=== PATIENT | female | born 1935 | race Caucasian/White ===

== ENCOUNTER → 2019-03-13 | Outpatient (CLI) | payer MEDICARE, BC ==
--- NOTE | 2019-03-13 19:03 | MR ---
EXAMINATION TYPE: MR lumbar spine wo con DATE OF EXAM: 03/13/2019 COMPARISON: Outside lumbar spine x-ray February 25, 2019 HISTORY: Lumbar radiculopathy per order. Low back pain with abnormal x-ray since fall injury February 23 per patient. TECHNIQUE: Multiplanar, multisequence imaging of the lumbar spine is performed without IV contrast. FINDINGS: There is redemonstration of dextroconvex scoliotic curvature centered in the mid to lower l umbar spine. Sagittal images of the lumbar spine show vertebral body heights to remain satisfactory. There is persistent grade 1 anterolisthesis of L4 on L5 measuring 4 mm along posterior margin sagitta l image 8. Multilevel disc desiccation is present. Mild to moderate multilevel disc space narrowing i s redemonstrated. Mild multilevel anterior spurring is seen. The conus medullaris is normal in posit ion and signal ending inferior L1 level. The bone marrow signal intensity is overall heterogeneous. Axial images show the T12-L1 level to have mild broad disc bulge minimally effacing anterior thecal s ac. Axial images at the L1-L2 level show subtle spondylolisthesis and mild broad disc bulge mildly effaci ng anterior thecal sac with mild facet arthropathy bilaterally. Axial images at the L2-L3 level show mild facet degenerative changes and ligament flavum hypertrophy. There is mild/moderate broad disc bulge effacing anterior thecal sac. Bilateral neural foramina are patent. Axial images at the L3-L4 level show moderate broad disc bulge effacing anterior thecal sac with mild facet degenerative changes bilaterally and mild to moderate bilateral anterior inferior neural refugio inal narrowing. Axial images at the L4-L5 level show moderate to advanced facet degenerative changes and ligament fla vum hypertrophy with spondylolisthesis and moderate broad disc bulge. Most prominent spinal canal rico nosis is seen at this level axial image 17 with moderate bilateral anterior inferior neural foraminal narrowing. Axial images at the L5-S1 level show moderate to advanced facet degenerative changes bilaterally. The re is central disc protrusion minimally effacing anterior thecal sac. Bilateral neural foramina are p atent. There is heterogeneous diminished T1 and increased T2 signal involving the sacrum bilaterally in some what "H" shape on axial image 5 for reference. There is displacement S1-S2 level roughly 11 mm senior sales consultant iorly sagittal image 7 IMPRESSION: Multilevel spondylolisthesis and degenerative changes in lumbar spine as detailed above. Suspect probable acute sacral displaced fracture related to recent fall injury. Possible insufficienc y fracture related to underlying osteoporosis. Correlate clinically. A Yellow level critical message alert has been initiated for Lit Steele MD via the [employer] Critical Results System on 03/13/2019 7:00 PM. This message alert has been sent to Lit Steele MD via the preferences provided by the clinician for the receipt of Radiology Critical Findings. Message ID [id number].
== END ==
LOC: RADMRIMAIN 08:38
PROVIDERS: ATTEND Internal Medicine
DX: M48.061 Spinal stenosis, lumbar region without neurogenic claudication (principal); M43.16 Spondylolisthesis, lumbar region; M51.15 Intervertebral disc disorders with radiculopathy, thoracolumbar region; M51.16 Intervertebral disc disorders with radiculopathy, lumbar region; M51.17 Intervertebral disc disorders with radiculopathy, lumbosacral region; M47.26 Other spondylosis with radiculopathy, lumbar region; M47.27 Other spondylosis with radiculopathy, lumbosacral region; M46.96 Unspecified inflammatory spondylopathy, lumbar region; M41.86 Other forms of scoliosis, lumbar region
CPT/HCPCS: 72148

== ENCOUNTER 2019-03-14 11:22 | Emergency (ER) | payer MEDICARE, BC ==
--- NOTE | 2019-03-14 11:49 | ED ---
Fall HPI - General Stated Complaint: fall/left hip pain Time Seen by Provider: 03/14/19 11:23 Source: patient, EMS Mode of arrival: EMS Limitations: no limitations - History of Present Illness Initial Comments: This 83-year-old female presents emergency Department, when EMS for evaluation of abnormal MRI. Patient had a fall on 02/23/2019 had x-rays and CTs of her hip next pain. Patient was admitted at that time to [facility] and states that she was transferred to [facility] for rehab. She states she had an MRI yesterday in which is found to have her fracture. MRI shows displaced fracture of the sacrum. Patient denies any bowel bladder incontinence or retention. Patient states she does have some pain areas down her legs. Patient does take pain meds. Her pain is worse when she is sitting better when she is laying. - Related Data Home Medications Medication Instructions Recorded Confirmed Gabapentin [Neurontin] 100 mg PO DAILY@0800 02/15/15 03/14/19 Metoprolol Tartrate 25 mg PO BID@0800,1700 02/15/15 03/14/19 Multivit-Min/FA/Lycopene/Lut 1 tab PO DAILY@169902/15/15 03/14/19 [Centrum Silver Tablet] Omeprazole [PriLOSEC] 20 mg PO BID@0800,169902/15/15 03/14/19 Vitamin E (Dl,Tocopheryl Acet) 400 unit PO DAILY@169902/15/15 03/14/19 [Vitamin E] ALPRAZolam [Xanax] 0.25 mg PO DAILY PRN 03/14/19 03/14/19 Bisacodyl [Dulcolax] 10 mg RECTAL DAILY PRN 03/14/19 03/14/19 Calcium Carb-Vit D 500Mg-200Un 1 tab PO DAILY@169903/14/19 03/14/19 [Oscal 500+D] Docusate [Colace] 100 mg PO BID@0800,2100 03/14/19 03/14/19 Enoxaparin [Lovenox] 40 mg SQ DAILY@0800 03/14/19 03/14/19 Ferrous Sulfate [Feosol] 325 mg PO BID@0800,1700 03/14/19 03/14/19 Glucerna Shake 1 can PO DAILY@0800 04/30/19 04/30/19 HYDROcodone/APAP 7.5-325MG [[place] 1 tab PO Q6H PRN 03/14/19 03/14/19 7.5-325] Magnesium Hydroxide [Milk of 2,400 mg PO DAILY PRN 03/14/19 03/14/19 Magnesia] Na Phos,M-B/Na Phos,Di-Ba [Fleet 133 ml RECTAL DAILY PRN 03/14/19 03/14/19 Adult] Pravastatin Sodium [Pravachol] 20 mg PO HS@2100 03/14/19 03/14/19 Sertraline [Zoloft] 25 mg PO DAILY@0800 03/14/19 03/14/19 Tamsulosin [Flomax] 0.4 mg PO DAILY@79903/14/19 03/14/19 Allergies Allergy/AdvReac Type Severity Reaction Status Date / Time calamine Allergy Unknown BURNING Verified 03/14/19 11:36 Review of Systems ROS Statement: Those systems with pertinent positive or pertinent negative responses have been documented in the HPI. ROS Other: All systems not noted in ROS Statement are negative. Past Medical History Past Medical History: Diabetes Mellitus, GERD/Reflux, Hyperlipidemia, Hypertension, Osteoarthritis (OA) Additional Past Medical History / Comment(s): NEUROPATHY FEET, DIABETES(NO MEDS), VERTIGO-STATES SHE SLEEPS IN RECLINER. HX OF PRE-CANCER OF BREAST, HX OF IRREGULAR HEART BEAT WITH ABLATION?, RECENT CONSTIPATION AND NAUSEA . History of Any Multi-Drug Resistant Organisms: None Reported Past Surgical History: Breast Surgery, Heart Catheterization Additional Past Surgical History / Comment(s): BREAST BXS, RT MASTECTOMY, CATARACTS. ? CARDIAC ABLATION. Past Anesthesia/Blood Transfusion Reactions: No Reported Reaction Additional Past Anesthesia/Blood Transfusion Reaction / Comment(s): HAS VERTIGO WHEN LYING FLAT STATES THE ROOM SPINS Past Psychological History: Anxiety Smoking Status: Never smoker Past Alcohol Use History: None Reported Past Drug Use History: None Reported - Past Family History Brother(s) Family Medical History: Cancer General Exam General appearance: alert, in no apparent distress Head exam: Present: atraumatic, normocephalic, normal inspection Respiratory exam: Present: normal lung sounds bilaterally. Absent: respiratory distress, wheezes, rales, rhonchi, stridor Cardiovascular Exam: Present: regular rate, normal rhythm, normal heart sounds. Absent: systolic murmur, diastolic murmur, rubs, gallop, clicks GI/Abdominal exam: Present: soft, normal bowel sounds. Absent: distended, tenderness, guarding, rebound, rigid Extremities exam: Present: normal inspection, full ROM, normal capillary refill. Absent: tenderness, pedal edema, joint swelling, calf tenderness Back exam: Present: tenderness, vertebral tenderness (Sacral). Absent: full ROM Neurological exam: Present: alert, oriented X3, CN II-XII intact Skin exam: Present: warm, dry, intact, normal color. Absent: rash Course Vital Signs 03/14/19 03/14/19 11:33 13:30 Temperature 99.5 F Pulse Rate 71 74 Respiratory 18 16 Rate Blood Pressure 119/57 127/74 O2 Sat by Pulse 99 99 Oximetry Medical Decision Making - Medical Decision Making 83-year-old female presented for abnormal MRI which shows sacral fracture. I did review MRI with orthopedics Padmini Ruff and Dr. Osorio in which the patient is not a surgical candidate at this time. She does have some spondylolisthesis. They recommend nonweightbearing, wheelchair transfer. Patient will be discharged she has no red flag symptoms. Return parameters were discussed. Disposition Clinical Impression: Sacral fracture, Spondylolisthesis, lumbar region Disposition: DC/TRNS INTERMEDIATE CARE FAC Condition: Stable Instructions (If sedation given, give patient instructions): Sacral Fracture (ED) Additional Instructions: Please return to the Emergency Department if symptoms worsen or any other concerns. Is patient prescribed a controlled substance at d/c from ED?: No Referrals: Lit Steele MD [STAFF PHYSICIAN] - 1-2 days Time of Disposition: 14:17 - Out of Hospital Transfer - Req. Specs Out of Hospital Transfer - Requested Specifics: Other Non-Acute ([place])
[2019-03-14 12:01] VITALS: TEMP 99.5
[2019-03-14 13:31] VITALS: RESP 16
[2019-03-14] MEDS ORDERED: HYDROcodone/APAP 10-325MG 1 EACH TAB PO ONE (14:15)
[2019-03-14] MEDS ORDERED: BISACODYL 10 MG SUPP RECTAL PRN (14:34)
[2019-03-14] MEDS ORDERED: HYDROcodone/APAP 7.5-325MG 1 EACH TAB PO PRN (14:34)
[2019-03-14] MEDS ORDERED: NA PHOS,M-B/NA PHOS,DI-BA 133 ML ENEMA RECTAL PRN (14:34)
[2019-03-14] MEDS ORDERED: ALPRAZolam 0.25 MG TAB PO PRN (14:34)
[2019-03-14] MEDS ORDERED: MAGNESIUM HYDROXIDE 2,400 MG/10 ML CUP PO PRN (14:34)
--- NOTE | 2019-03-14 14:34 | P.HPIM ---
History of Present Illness H&P Date: 03/14/19 Chief Complaint: Abnormal MRI of the sacrum This is a 83-year-old female, patient of Dr. Baxter. She has a known past medical history of hypertension, paroxysmal atrial fibrillation status post ablation, hyperlipidemia, GERD, osteo-arthritis, borderline diabetic and depression. Patient was recently hospitalized at [facility] on February 23 after a fall with left hip pain and contusion. At that time a computed tomography scan of the hip was completed it was negative for any fracture she had x-rays of the cervical spine x-rays of the lumbar spine which were also negative. Patient had gone to [facility] for rehab. She continued to have significant pain with trying to sit or with moving into a sitting position. She was unable to walk and participate with physical therapy. Further workup was done with a computed tomography scan and then it MRI of the lumbar spine. Results showed a multilevel spondylolisthesis and degenerative changes in the lumbar spine. Suspect probable acute sacral displaced fracture related to recent fall injury. Possible insufficiency fracture related to underlying osteoporosis. Patient has been admitted to the hospital for further workup and evaluation. Consult is been placed for Dr. Bhakta. Patient does report the Nor co does control her pain. She denies any fever, chills, sweats, chest pain or shortness breath, nausea or vomiting, bowel movement changes or urinary symptoms. She denies any loss of bowel or bladder control. Denies any numbness, tingling or weakness of the lower extremities. Review of Systems Please refer to HPI otherwise unremarkable Past Medical History Past Medical History: Diabetes Mellitus, GERD/Reflux, Hyperlipidemia, Hypertension, Osteoarthritis (OA) Additional Past Medical History / Comment(s): NEUROPATHY FEET, DIABETES(NO MEDS), VERTIGO-STATES SHE SLEEPS IN RECLINER. HX OF PRE-CANCER OF BREAST, HX OF IRREGULAR HEART BEAT WITH ABLATION?, RECENT CONSTIPATION AND NAUSEA . History of Any Multi-Drug Resistant Organisms: None Reported Past Surgical History: Breast Surgery, Heart Catheterization Additional Past Surgical History / Comment(s): BREAST BXS, RT MASTECTOMY, CATARACTS. ? CARDIAC ABLATION. Past Anesthesia/Blood Transfusion Reactions: No Reported Reaction Additional Past Anesthesia/Blood Transfusion Reaction / Comment(s): HAS VERTIGO WHEN LYING FLAT STATES THE ROOM SPINS Past Psychological History: Anxiety Smoking Status: Never smoker Past Alcohol Use History: None Reported Past Drug Use History: None Reported - Past Family History Brother(s) Family Medical History: Cancer Medications and Allergies Home Medications Medication Instructions Recorded Confirmed Type Gabapentin [Neurontin] 100 mg PO DAILY@0800 02/15/15 03/14/19 History Metoprolol Tartrate 25 mg PO BID@0800,1700 02/15/15 03/14/19 History Multivit-Min/FA/Lycopene/Lut 1 tab PO DAILY@17002/15/15 03/14/19 History [Centrum Silver Tablet] Omeprazole [PriLOSEC] 20 mg PO BID@0800,1700 02/15/15 03/14/19 History Vitamin E (Dl,Tocopheryl Acet) 400 unit PO DAILY@169902/15/15 03/14/19 History [Vitamin E] ALPRAZolam [Xanax] 0.25 mg PO DAILY PRN 03/14/19 03/14/19 History Bisacodyl [Dulcolax] 10 mg RECTAL DAILY PRN 03/14/19 03/14/19 History Calcium Carb-Vit D 500Mg-200Un 1 tab PO DAILY@169903/14/19 03/14/19 History [Oscal 500+D] Docusate [Colace] 100 mg PO BID@0800,2100 03/14/19 03/14/19 History Enoxaparin [Lovenox] 40 mg SQ DAILY@0800 03/14/19 03/14/19 History Ferrous Sulfate [Feosol] 325 mg PO BID@0800,1700 03/14/19 03/14/19 History Glucerna Shake 1 can PO DAILY@0800 03/14/19 03/14/19 History HYDROcodone/APAP 7.5-325MG [[place] 1 tab PO Q6H PRN 03/14/19 03/14/19 History 7.5-325] Magnesium Hydroxide [Milk of 2,400 mg PO DAILY PRN 03/14/19 03/14/19 History Magnesia] Na Phos,M-B/Na Phos,Di-Ba [Fleet 133 ml RECTAL DAILY PRN 03/14/19 03/14/19 History Adult] Pravastatin Sodium [Pravachol] 20 mg PO HS@209903/14/19 03/14/19 History Sertraline [Zoloft] 25 mg PO DAILY@0800 03/14/19 03/14/19 History Tamsulosin [Flomax] 0.4 mg PO DAILY@0800 03/14/19 03/14/19 History Allergies Allergy/AdvReac Type Severity Reaction Status Date / Time calamine Allergy Unknown BURNING Verified 03/14/19 11:36 Physical Exam Vitals: Vital Signs Temp Pulse Resp BP Pulse Ox 03/14/19 13:30 74 16 127/74 99 03/14/19 11:33 99.5 F 71 18 119/57 99 Intake and Output 03/13/19 03/14/19 03/14/19 22:59 06:59 14:59 Other: Weight 64.41 kg Head normocephalic Neck supple Lungs clear to auscultation bilaterally no wheezing or crackles Heart regular rate and rhythm S1-S2, no rub or gallop Abdomen is soft nontender nondistended positive bowel sounds no hepatosplenomegaly Extremities no edema. Patient is able to push feet down his gas pedals with good strength. Bilaterally. She is able to lift legs off the table without any pain. Neuro alert and orientated to 3 Assessment and Plan Assessment: 1. Lower back pain with sitting and unable to ambulate with fall on 02/23/2019: MRI of the lumbar spine showing a suspected probable acute sacral displaced fracture related to recent fall injury. Possible insufficiency fracture related to underlying osteoporosis. Consult Dr. Bhakta. Continue Leona for pain control 2. History of paroxysmal atrial fibrillation status post ablation. Per patient this was several years ago and has not been on any anticoagulation 3. Essential hypertension 4. Hyperlipidemia 5. History of breast cancer status post right mastectomy in 2011 6. Iron deficiency anemia 7. Osteoarthritis 8. Borderline diabetic hemoglobin A1c at [facility] was 6.6. Continue diabetic diet 9. Depression continue Zoloft 10. Generalized anxiety disorder. Continue Xanax as needed 11. Episode of urinary retention at [facility] resolved. Patient evaluated by urology at that time and was discharged on Flomax GI prophylaxis Pepcid and DVT prophylaxis Lovenox Time with Patient: Greater than 30 (Greater than 50% of the total time spent in counseling and coordination of care.I performed an examination of the patient and discussed their management with the physician Heavy Equipment Operator/Paver. I have reviewed the Physician Heavy Equipment Operator/Paver's notes and agree with the documented findings and plan of care)
[2019-03-14 14:46] VITALS: BP 128/57; PULSE 62
[2019-03-14] MEDS ORDERED: LUT PO SCH (17:00)
[2019-03-14] MEDS ORDERED: [UNRECOGNIZED DRUG - OTHER] PO SCH (17:00)
[2019-03-14] MEDS ORDERED: CALCIUM CARB-VIT D 500MG-200UN 1 EACH TAB PO SCH (17:00)
[2019-03-14] MEDS ORDERED: MULTIVIT MIN PO SCH (17:00)
[2019-03-14] MEDS ORDERED: LYCOPENE PO SCH (17:00)
[2019-03-14] MEDS ORDERED: VITAMIN E (DL,TOCOPHERYL ACET) 400 UNIT CAP PO SCH (17:00)
[2019-03-14] MEDS ORDERED: METOPROLOL TARTRATE 25 MG TAB PO SCH (17:00)
[2019-03-14] MEDS ORDERED: NON-FORMULARY DRUG (Omeprazole [Prilosec] 20 MG) PO SCH (17:00)
[2019-03-14] MEDS ORDERED: FERROUS SULFATE 325 MG TAB PO SCH (17:00)
[2019-03-14] MEDS ORDERED: INSULIN ASPART (NovoLOG) 100 UNIT/ML VIAL SQ SCH (17:30)
[2019-03-14] MEDS ORDERED: DOCUSATE 100 MG CAP PO SCH (21:00)
[2019-03-14] MEDS ORDERED: PRAVASTATIN SODIUM 20 MG TAB PO SCH (21:00)
[2019-03-15] MEDS ORDERED: NON-FORMULARY DRUG (Glucerna Shake 1 CAN) PO SCH (08:00)
[2019-03-15] MEDS ORDERED: GABAPENTIN 100 MG CAP PO SCH (08:00)
[2019-03-15] MEDS ORDERED: TAMSULOSIN 0.4 MG CAP.ER.24H PO SCH (08:00)
[2019-03-15] MEDS ORDERED: ENOXAPARIN 40 MG/0.4 ML SYRINGE SQ SCH (08:00)
[2019-03-15] MEDS ORDERED: SERTRALINE 25 MG TAB PO SCH (08:00)
== END 2019-03-14 16:41 ==
LOC: EC 11:22
DX: S32.10XA Unspecified fracture of sacrum, initial encounter for closed fracture (principal); M43.16 Spondylolisthesis, lumbar region; K21.9 Gastro-esophageal reflux disease without esophagitis; E78.5 Hyperlipidemia, unspecified; I10 Essential (primary) hypertension; G62.9 Polyneuropathy, unspecified; M19.90 Unspecified osteoarthritis, unspecified site; F41.9 Anxiety disorder, unspecified; Z79.01 Long term (current) use of anticoagulants; Z79.899 Other long term (current) drug therapy; Z88.8 Allergy status to other drugs, medicaments and biological substances; Z85.3 Personal history of malignant neoplasm of breast; W19.XXXA Unspecified fall, initial encounter; Y92.009 Unspecified place in unspecified non-institutional (private) residence as the place of occurrence of the external cause
CPT/HCPCS: 99284

== ENCOUNTER → 2019-07-21 | Outpatient (CLI) | payer MEDICARE, BC ==
[2019-07-21 11:07] LABS: Anisocytosis Slight; HCT 39.3 % (34.0-46.0); HGB 12.6 gm/dL (11.4-16.0); MCH 31.2 pg (25.0-35.0); MCHC 32.2 g/dL (31.0-37.0); MCV 97.1 fL (80.0-100.0); Mean Platelet Volume 7.1; Platelet Count 240 k/uL (150-450); RBC 4.05 m/uL (3.80-5.40); RDW 16.1 % (11.5-15.5); WBC 7.5 k/uL (3.8-10.6)
[2019-07-21 11:13] LABS: Appearance,Urine Clear (Clear); Bilirubin,Urine Negative (Negative); Blood,Urine Negative (Negative); Color,Urine Yellow; Glucose,Urine (UA) Negative (Negative); Ketones,Urine Negative (Negative); Leukocyte Esterase,Urine Negative (Negative); Nitrite,Urine Negative (Negative); Protein,Urine Negative (Negative); Specific Gravity,Urine 1.011 (1.001-1.035); Urobilinogen,Urine <2.0 mg/dL (<2.0)
[2019-07-21 11:14] LABS: INR 0.9 (<1.2); Partial Thromboplastin Time 25.6 sec (22.0-30.0)
[2019-07-21 11:26] LABS: ALT 18 U/L (9-52); AST 23 U/L (14-36); African American GFR (CKD) >90 (>60 ml/min/1.73 sqM); Albumin 4.2 g/dL (3.5-5.0); Alkaline Phosphatase 98 U/L (38-126); Anion Gap 7 mmol/L; Blood Urea Nitrogen 20 mg/dL (7-17); Calcium 9.7 mg/dL (8.4-10.2); Carbon Dioxide 30 mmol/L (22-30); Chloride 102 mmol/L (98-107); Glucose 89 mg/dL (74-99); Sodium 139 mmol/L (137-145); Total Bilirubin 0.3 mg/dL (0.2-1.3); Total Protein 7.2 g/dL (6.3-8.2)
== END | disposition home or self-care (01) ==
LOC: LABPAT 10:34
PROVIDERS: ATTEND Orthopaedic Surgery
DX: Z01.812 Encounter for preprocedural laboratory examination (principal); M17.11 Unilateral primary osteoarthritis, right knee; Z79.01 Long term (current) use of anticoagulants
CPT/HCPCS: 36415; 80053; 81003; 85027; 85610; 85730; 87070

== ENCOUNTER 2019-08-07 13:30 | Inpatient (IN) | payer MEDICARE, BC ==
[2019-08-01 15:34] VITALS: BMI 23.6
[~2019-08-07 13:30] MED LIST: ACETAMINOPHEN TAB 500 MG TAB PO ONE; LIDOCAINE 1% 20 ML VIAL (10MG/ML) FOR IV START INTRADERMA PRN; MIDAZOLAM 2 MG/2 ML VIAL IV PRN; ONDANSETRON 4 MG/2 ML VIAL IVP ONE; ROPIVACAINE 246.25 MG, EPINEPHrine 0.5 MG, KETOROLAC 30 MG, cloNIDine HCL/PF 80 MCG, WA... MISCELLANE ONE; TRANEXAMIC ACID 1,000 MG in SODIUM CHLORIDE 0.9% 100 ML IVPB ONE; fentaNYL (PF) 50 MCG/ML 2 ML AMP IV PRN
[2019-08-07] MEDS ORDERED: MELOXICAM 7.5 MG TAB PO ONE (13:56)
[2019-08-07] MEDS: LACTATED RINGERS 1,000 ML IV SCH ×3 (14:05→21:20)
[2019-08-07] MEDS ORDERED: ROPIVACAINE 0.2%-NS ON-Q PUMP 1,090 MG, EMPTY PAIN BALL 1 EACH MISCELLANE PRN (15:02)
[2019-08-07] MEDS ORDERED: ROPIVACAINE 246.25 MG, EPINEPHrine 0.5 MG, KETOROLAC 30 MG, cloNIDine HCL/PF 80 MCG, WA... MISCELLANE ONE ×5 (15:13)
[2019-08-07] MEDS ORDERED: fentaNYL (PF) 50 MCG/ML 2 ML AMP ONE (15:25)
[2019-08-07] MEDS ORDERED: ePHEDrine SULFATE/0.9% NACL/PF 50 MG/5 ML SYRINGE IV ONE (15:25)
[2019-08-07] MEDS ORDERED: PROPOFOL 10 MG/ML 20 ML VIAL IV ONE (15:25)
[2019-08-07] MEDS ORDERED: TRANEXAMIC ACID 1,000 MG/10 ML VIAL ONE (15:25)
[2019-08-07] MEDS ORDERED: SODIUM CHLORIDE 0.9% 100 ML BAG ONE (15:25)
[2019-08-07] MEDS ORDERED: MIDAZOLAM 2 MG/2 ML VIAL ONE (15:25)
[2019-08-07] MEDS ORDERED: ceFAZolin 3,000 MG in SODIUM CHLORIDE 0.9% IRRIGATIO 3,000 ML IRRIGATION ONE (15:43)
--- NOTE | 2019-08-07 16:30 | P.ANPRN ---
Procedure Note - Anesthesia - Nerve Block Performed Right Adductor Canal Infusion Time Out Performed: Yes Date of Procedure: 08/07/19 Procedure Start Time: 14:29 Location of Patient Procedure: PreOp Indication: Acute Post-Operative Pain, Requested by Surgeon Specifically requested for management of pain by DrJohnson: [place] Red Sedation Type: Sedate with meaningful contact maintained Preparation: Sterile Prep Position: Supine Catheter: Indwelling Needle Types: Pajunk Needle Gauge: 18 Ultrasound used to visualize needle placement: Yes Ultrasound used to observe medication spread: Yes Injectate: 0.5% Ropivacaine (see comment for volume) Blood Aspirated: No Pain Paresthesia on Injection Noted: No Resistance on Injection: Normal Image Stored and Saved: Yes Events: Uneventful and Well Tolerated
[2019-08-07] MEDS ORDERED: LACTATED RINGERS 1,000 ML IV ONE (16:55)
--- NOTE | 2019-08-07 17:19 | P.OP ---
Date of Procedure: 08/07/19 Procedure(s) Performed: PREOPERATIVE DIAGNOSIS: Right knee severe osteoarthritis with genu varum POSTOPERATIVE DIAGNOSIS: Right knee severe osteoarthritis with genu varum OPERATION: Right knee cemented total replacement arthroplasty, Oxinium on polyethylene. ANESTHESIA: Spinal ESTIMATED BLOOD LOSS: 50 ml. TRAILER TANK TRUCK DRIVER: Gricel Shah PA-C (assistance with: patient positioning, retraction, exposure, hemostasis, leg positioning, implantation, irrigation, closure, dressing) COMPLICATIONS: None apparent. COMPONENTS IMPLANTED: Journey II BCS total knee system from [employer], [employer] INDICATIONS: Ms. Weber is an 83 year old female with a history of right knee osteoarthritis and severe genu varum. The patient's knee is end-stage, and conservative management has failed. The operation of knee replacement has been discussed at length in the office, as well as potential risks and complications. These are inclusive of, but not limited to: bleeding, infection, scarring, discomfort, blood vessel and nerve damage, need for further surgery, failure to relieve symptoms, persistence, recurrence, or worsening of problems, loosening, dislocation, wear, blood clot, pulmonary embolism, , gait dysfunction, stiffness, and other risks as discussed in the office. The patient elects to proceed and the consent form has been signed. PROCEDURE: The patient was taken to the operating room and positioned on the operating room table in the supine position. Anesthesia was initiated. Care was taken to make sure that all pressure points were adequately padded. The right operative lower extremity was prepped and draped in the usual aseptic fashion using ChloraPrep. Ioban drape was used for the case and the patient received intravenous antibiotics within one hour of the incision. A pneumotourniquet and leg mendoza were used for the case. The limb was exsanguinated with an Esmarch bandage and the tourniquet was inflated to 350 mmHg. Time-out was called confirming the patient's identity, side, procedure and administration of antibiotics and tranexamic acid. The incision was then created midline directly over the left knee, carried down through skin and into the subcutaneous tissues and down to fascia. Full thickness subcutaneous medial flap was developed. Medial parapatellar arthrotomy was performed and the interior of the knee was inspected. There was end-stage osteoarthritis of the knee with a severe genu varum type deformity. According to preop templating via the [employer] system, this patient had a varus deformity measuring 18.3 degrees. The fat pad was excised and proximal medial release on the tibia was completed using meticulous dissection and a curv ed osteotome. The anterior cruciate ligament was taken down. Note was made of significant attrition of the anterior and significant degenerative appearance of the cruciate ligaments. The exposure was excellent. The knee was flexed 90 degrees and the patella was everted. The [employer] pre- made distal cutting block was attached and pinned into position. The planned cut was analyzed visually and found to be satisfactory without the need for any adjustment. The oscillating saw was then used to make the distal femoral cut. This cut was confirmed to be flat with the flat end of an osteotome. The retractors were placed around the tibia and the tibial surface was addressed. The [employer] pre-made guide was placed onto the exposed tibial surface and pinned into position to shayy the rotational alignment. The alignment of the guide was checked for depth of plannned resection, slope, and varus valgus. Guide was confirmed to be in good position and the tibial cut was then created with protection of the posterior neurovascular structures and the collateral ligaments. The tibial cut surface was removed and sized. Femoral sizing was then accomplished using posterior referencing. Care was taken to analyze the posterior condyles for signs of deficiency or severe wear, and adjustments to the guide were made, as appropriate. 3 degree external rotation pins were placed relative to [place]'s line. The cutting jig for the femur was applied to these pins. The planned cuts were further analyzed prior to performing them with the oscillating saw. No femoral notching was produced. B one fragments were removed and the cut surfaces were finished, as necessary, with a reciprocating saw. Spacer block technique was then used to confirm that the flexion and extension gaps were equal. Soft tissue releases and adjustment of the tibial and/or femoral cuts were made, as necessary, until the gaps were equal. This included release of the posterior cruciate ligament, which was excessively tight in this patient. The femur was then further finished for a posterior cruciate ligament substituting component. Patellar resurfacing was performed using a reamer. The size of the required patellar component was estimated and the patellar surface was then reamed down to a residual thickness which would recreate the otoe-[place] thickness with the component. The exact placement of the patellar component was adjusted for position based on preoperative x-rays and intraoperative findings. Prior to placing trial components, anesthetic solution consisting of ropivicaine with epinephrine, ketorolac, and clonidine was injected carefully and methodically in a grid pattern using aspiration technique into the soft tissue around the knee circumferentially, starting with the deeper tissues first and progressing to fascia, and then finally the skin/subcutaneous tissue. Particular care was taken when injecting the posterior capsule. The trial components were inserted. The tibial tray was allowed to self center and the patella was noted to track very well. The position of the tibial component was marked and noted to be nearly exactly aligned with the pre-drilled holes from the [employer] guide. The tibia was then finished for a stemmed tibial component. Cement was mixed on the back table and applied to the final components. Trial components were removed and the cut surfaces of the bone were pulse lavaged thoroughly and dried. Medial extensive spurring was removed during this step according to the placement of the trial. Cement was then applied to the tibial surface and pressurized into the surface using finger pressurization technique. The tibial component was then applied and excess cement was removed after it was impacted securely and noted to be flush with the cut surface. In similar fashion, the cement was applied to the cut femoral surface, pressurized in using finger pressurization and the component was impacted into place. Excess cement was removed. The polyethylene spacer was then implanted and locked into position. The patellar component was then applied in similar technique and a patellar clamp was used to hold the patella in place as the cement hardened. Once the cement had fully hardened, the knee was reinspected. Any other cement extrusion was removed and final kinematic testing showed range of motion from 0 to 130 degrees with excellent stability, both medially and laterally and appropriate alignment of the leg. Patellar tracking was excellent. The knee was then thoroughly pulse lavaged with normal saline. The tourniquet was deflated and hemostasis was obtained with electrocautery and IV tranexamic acid, 1 g given at the start of the operation and 1 g at the start of closure. Closure was with #2 Ethibond in the fascia/capsule and supplemented with #2 Quill, 2-0 Vicryl suture was used for the subcutaneous tissues and 3-0 Quill for the skin. Dermabond/Steri-Strips were then applied. A lightly compressive dressing was applied using Webril and an Gurvinder wrap. The patient was then transferred to [facility] and taken to the recovery room in stable condition. Sponge and needle counts were correct.
[2019-08-07] MEDS ORDERED: TEMAZEPAM 15 MG CAP PO PRN (17:55)
[2019-08-07] MEDS ORDERED: NALOXONE 0.4 MG/ML 1 ML VIAL IV PRN (17:55)
[2019-08-07] MEDS ORDERED: HYDROcodone/APAP 5-325MG 1 EACH TAB PO PRN (17:55)
[2019-08-07] MEDS ORDERED: NA PHOS,M-B/NA PHOS,DI-BA 133 ML ENEMA RECTAL PRN (17:55)
[2019-08-07] MEDS ORDERED: HYDROmorphone 0.5 MG/0.5 ML SYRINGE IVP PRN ×3 (17:55)
[2019-08-07] MEDS ORDERED: ONDANSETRON 4 MG/2 ML VIAL IVP PRN (17:55)
[2019-08-07] MEDS ORDERED: MAGNESIUM HYDROXIDE 2,400 MG/10 ML CUP PO PRN (17:55)
[2019-08-07] MEDS ORDERED: BISACODYL 10 MG SUPP RECTAL PRN (17:55)
--- NOTE | 2019-08-07 18:38 | XR ---
EXAMINATION TYPE: XR knee limited RT DATE OF EXAM: 08/07/2019 COMPARISON: NONE HISTORY: Postop. Pain. TECHNIQUE: 2 views FINDINGS: There is right knee prosthesis. Components are in anatomic position. IMPRESSION: No complicating process seen.
[2019-08-07] MEDS: ASPIRIN 325 MG TAB PO SCH (21:36)
[2019-08-07] MEDS: SENNOSIDES-DOCUSATE SODIUM 1 EACH TAB PO SCH (21:37)
[2019-08-08] MEDS: LACTATED RINGERS 1,000 ML IV SCH ×2 (04:07→07:11)
--- NOTE | 2019-08-08 07:12 | P.PN ---
Progress Note - Text 08/08 654am 83-year-old female status post total knee replacement by Dr. Red. Patient has an On-Q pump for postop pain control with the solution running at 8 mL an hour with a VAS of 1. plan to continue On-Q pump infusion f
[2019-08-08 07:37] LABS: Basophils % (A) 0 %; Eosinophils # (A) 0.1 k/uL (0-0.7); Eosinophils % (A) 1 %; HCT 34.9 % (34.0-46.0); HGB 11.4 gm/dL (11.4-16.0); Lymphocytes # (A) 1.2 k/uL (1.0-4.8); Lymphocytes % (A) 15 %; MCH 31.2 pg (25.0-35.0); MCHC 32.5 g/dL (31.0-37.0); Monocytes # (A) 0.6 k/uL (0-1.0); Monocytes % (A) 7 %; Neutrophils # (A) 5.7 k/uL (1.3-7.7); Neutrophils % (A) 74 %; Platelet Count 207 k/uL (150-450); RBC 3.64 m/uL (3.80-5.40); RDW 15.7 % (11.5-15.5); WBC 7.7 k/uL (3.8-10.6)
[2019-08-08] MEDS: MELOXICAM 7.5 MG TAB PO SCH (07:54)
[2019-08-08] MEDS: HYDROcodone/APAP 5-325MG 1 EACH TAB PO PRN ×2 (07:54→17:27)
[2019-08-08] MEDS: ASPIRIN 325 MG TAB PO SCH ×2 (07:54→20:41)
[2019-08-08 08:51] VITALS: RESP 16
--- NOTE | 2019-08-08 09:53 | P.PN ---
Subjective Progress Note Date: 08/08/19 Principal diagnosis: Degenerative arthritis right knee. Status post total right knee arthroplasty. This is a pleasant 83-year-old female who is status post total right knee arthroplasty. She is doing well from an orthopedic standpoint. She has been up with therapy this morning. She has no new complaints or concerns today. Vital signs and labs are stable. Objective - Vital Signs Vital signs: Vital Signs Temp 98.2 F 08/08/19 07:40 Pulse 67 08/08/19 07:40 Resp 16 08/08/19 07:40 BP 126/67 08/08/19 07:40 Pulse Ox 93 L 08/08/19 07:40 Intake & Output 08/07/19 08/08/19 08/08/19 18:59 06:59 18:59 Intake Total 1251 250 Output Total 50 Balance 1201 250 Intake: IV 1251 250 Output: Estimated Blood Loss 50 Other: Voiding Method Toilet Toilet # Voids 1 1 - Exam This is a pleasant 83-year-old female in no acute distress. She is alert and oriented 3. Exam of the right knee reveals that her dressing is clean, dry and intact. She has full foot and ankle motion without difficulty or pain. Pain with palpation. Neurovascular status to the lower extremity is intact. - Labs CBC & Chem 7: 08/08/19 07:19 Labs: Abnormal Lab Results - Last 24 Hours (Table) 08/08/19 Range/Units 07:19 RBC 3.64 L (3.80-5.40) m/uL RDW 15.7 H (11.5-15.5) % Assessment and Plan (1) Varus deformity, not elsewhere classified, right knee Current Visit: Yes Status: Acute Code(s): M21.161 - VARUS DEFORMITY, NOT ELSEWHERE CLASSIFIED, RIGHT KNEE SNOMED Code(s): 004453891 (2) Osteoarthritis of right knee Current Visit: Yes Status: Acute Code(s): M17.11 - UNILATERAL PRIMARY OSTEOARTHRITIS, RIGHT KNEE SNOMED Code(s): 028798457594155 (3) Status post total right knee replacement Current Visit: Yes Status: Acute Code(s): Z96.651 - PRESENCE OF RIGHT ARTIFICIAL KNEE JOINT SNOMED Code(s): 1688894843860 Plan: The clinical findings are discussed with the patient. We will plan discharged to home tomorrow with home care. We will have physical therapy work with her some more today. Continue routine orthopedic care.
[2019-08-08 11:23] LABS: ALT 14 U/L (9-52); AST 22 U/L (14-36); African American GFR (CKD) >90 (>60 ml/min/1.73 sqM); Albumin 3.4 g/dL (3.5-5.0); Alkaline Phosphatase 81 U/L (38-126); Anion Gap 8 mmol/L; Blood Urea Nitrogen 15 mg/dL (7-17); Carbon Dioxide 27 mmol/L (22-30); Chloride 103 mmol/L (98-107); Glucose 139 mg/dL (74-99); Potassium 4.4 mmol/L (3.5-5.1); Sodium 138 mmol/L (137-145); Total Bilirubin 0.3 mg/dL (0.2-1.3)
--- NOTE | 2019-08-08 11:36 | P.CONS ---
History of Present Illness - Reason for Consult Consult date: 08/08/19 Medical management Requesting physician: Denton Red - Chief Complaint Severe osteoarthritis of right knee - History of Present Illness This is an 83-year-old female patient of Dr. Baxter. She presented 08/07/2019 for an elective right knee cemented total replacement arthroplasty with Dr. Red. She has an On-Q pump in place. She denies any pain at this time, pain regimen managed by Ortho. Patient is alert and sitting up in chair, family at bedside. Patient denies shortness of breath, chest pain, N/V. Patient has not yet had a bowel movement, but is on stools softeners and passing flatus. Patient has a history of osteoarthritis and had an acute sacral displaced fracture in February 2019, completed physical therapy and was seen Dr. Bhakta. Patient has a history of contusion of the left hip status post fall. Patient has History of essential hypertension on metoprolol, GERD , breast cancer status post right mastectomy 2011, iron deficiency anemia hemoglobin stable at 11.4 will resume ferrous sulfate, hyperlipidemia on home dose statin. Review of Systems Please refer to HPI otherwise unremarkable Past Medical History Past Medical History: Diabetes Mellitus, GERD/Reflux, Hyperlipidemia, Hypertension, Osteoarthritis (OA) Additional Past Medical History / Comment(s): NEUROPATHY FEET, DIABETES(NO MEDS), VERTIGO-STATES SHE SLEEPS IN RECLINER. HX OF PRE-CANCER OF BREAST, HX OF IRREGULAR HEART BEAT WITH ABLATION?, RECENT CONSTIPATION AND NAUSEA . History of Any Multi-Drug Resistant Organisms: None Reported Past Surgical History: Breast Surgery, Heart Catheterization Additional Past Surgical History / Comment(s): BREAST BXS, RT MASTECTOMY, CATARACTS. ? CARDIAC ABLATION. STOMACH BYPASS SURGERY (SEP 2016) Past Anesthesia/Blood Transfusion Reactions: No Reported Reaction Additional Past Anesthesia/Blood Transfusion Reaction / Comm: HAS VERTIGO WHEN LYING FLAT STATES THE ROOM SPINS Past Psychological History: Anxiety Additional Psychological History / Comment(s): denies Smoking Status: Never smoker Past Alcohol Use History: None Reported Past Drug Use History: None Reported - Past Family History Father Family Medical History: Congestive Heart Failure (CHF) Brother(s) Family Medical History: Cancer Medications and Allergies Home Medications Medication Instructions Recorded Confirmed Type Metoprolol Tartrate 25 mg PO BID@0800,1700 02/15/15 08/07/19 History Multivit-Min/FA/Lycopene/Lut 1 tab PO DAILY@1700 02/15/15 08/07/19 History [Centrum Silver Tablet] Vitamin E (Dl,Tocopheryl Acet) 400 unit PO DAILY@1700 02/15/15 08/07/19 History [Vitamin E] Ferrous Sulfate [Feosol] 325 mg PO DAILY 03/14/19 08/07/19 History Pravastatin Sodium [Pravachol] 20 mg PO HS@2100 03/14/19 08/07/19 History Sertraline [Zoloft] 25 mg PO DAILY@0800 03/14/19 08/07/19 History Acetaminophen [Tylenol Arthritis] 1,300 mg PO DAILY PRN 08/01/19 08/07/19 History Acetaminophen [Tylenol Extra 1,000 mg PO HS PRN 08/01/19 08/07/19 History Strength] Swati-[place] Cold 2 tab PO HS 08/01/19 08/07/19 History Aspirin [Adult Low Dose Aspirin EC] 40.5 mg PO DAILY 08/01/19 08/07/19 History B Complex-Vit C-Vit E-Zinc [Z-Bec] 1 tab PO Q48H 08/01/19 08/07/19 History Dm/PE/Acetaminophen/Doxylamine 2 each PO HS 08/01/19 08/07/19 History [Swati-[place] Plus Day-Night Cp] Ranitidine HCl 150 mg PO BID@0800,1700 08/01/19 08/07/19 History Turmeric Root Extract [Turmeric] 2,000 mg PO DAILY 08/01/19 08/07/19 History Aspirin 325 mg PO BID #60 tab 08/08/19 Rx HYDROcodone/APAP 5-325MG [Cora 1 - 2 each PO Q4-6H PRN #50 tab 08/08/19 Rx 5-325] Sennosides-Docusate Sodium 1 tab PO BID #60 tablet 08/08/19 Rx [Senokot-S] Allergies Allergy/AdvReac Type Severity Reaction Status Date / Time calamine Allergy Unknown BURNING Verified 08/07/19 13:43 Physical Exam Vitals: Vital Signs Temp Pulse Resp BP Pulse Ox 08/08/19 07:40 98.2 F 67 16 126/67 93 L 08/08/19 01:18 97.8 F 63 18 100/51 95 08/07/19 20:30 70 16 126/76 95 08/07/19 20:00 71 16 122/70 94 L 08/07/19 19:30 72 16 124/76 95 08/07/19 19:00 71 16 122/79 95 08/07/19 18:45 68 16 126/77 96 08/07/19 18:30 66 16 128/78 95 08/07/19 18:15 71 16 133/62 97 08/07/19 17:48 72 14 134/62 95 08/07/19 13:52 97.3 F L 69 17 142/63 96 Intake and Output 08/07/19 08/08/19 08/08/19 22:59 06:59 14:59 Intake Total 901 Output Total 50 Balance 851 Intake: IV 901 Output: Estimated Blood Loss 50 Other: Voiding Method Toilet Toilet # Voids 1 1 Head normocephalic Neck supple Lungs clear to auscultation bilaterally no wheezing or crackles Heart regular rate and rhythm S1-S2, no rub or gallop Abdomen is soft nontender nondistended positive bowel sounds no hepatosplenomegaly Extremities no edema. Right knee elevated with ice packs, dressing clean dry and intact Neuro alert and orientated to 3 Results CBC & Chem 7: 08/08/19 07:19 Labs: Abnormal Lab Results - Last 24 Hours (Table) 08/08/19 Range/Units 07:19 RBC 3.64 L (3.80-5.40) m/uL RDW 15.7 H (11.5-15.5) % Assessment and Plan Assessment: 1. Elective right knee total replacement arthroplasty on 08/07/[address] Red. On-Q pump in place, PRN pain regimen managed by Ortho. Progressive mobility per Ortho. Aspirin BID for anticoagulation therapy. 2. History of sacral fracture in February 2019. Rehab completed for sacral fracture in March 2019. patiented followed-up with Dr. bhakta no further treatment at this time. Pain resolved 3. History of essential hypertension, on metoprolol twice a day. 4. History of GERD, on ranitidine. 5. History of hyperlipidemia, on a statin. 6. History of iron deficiency anemia, hemoglobin stable at 11.4, will resume ferrous sulfate 7. History of right breast cancer status post mastectomy 2011 8. History of gastric outlet obstruction and pyloric stenosis with exploratory lap and gastrojejunostomy in September 2016. 9. History of fall with contusion of left hip. Thank you for this consult will continue to monitor patient closely throughout stay Time with Patient: Greater than 30 (Greater than 60% of the total time spent in counseling and coordination of care. I performed an examination of the patient and discussed their management with the Nurse Practitioner. I have reviewed the Nurse Practitioner's notes and agree with the documented findings and plan of care)
[2019-08-08] MEDS: FAMOTIDINE 20 MG TAB PO SCH (17:28)
[2019-08-08] MEDS: METOPROLOL TARTRATE 25 MG TAB PO SCH (17:28)
[2019-08-08] MEDS: SENNOSIDES-DOCUSATE SODIUM 1 EACH TAB PO SCH (20:42)
[2019-08-08] MEDS ORDERED: PRAVASTATIN SODIUM 20 MG TAB PO SCH (21:00)
[2019-08-09 07:33] LABS: Basophils # (A) 0.1 k/uL (0-0.2); Basophils % (A) 1 %; Eosinophils # (A) 0.2 k/uL (0-0.7); Eosinophils % (A) 2 %; HCT 33.6 % (34.0-46.0); HGB 11.1 gm/dL (11.4-16.0); Lymphocytes # (A) 2.2 k/uL (1.0-4.8); Lymphocytes % (A) 26 %; MCH 31.6 pg (25.0-35.0); MCV 95.9 fL (80.0-100.0); Mean Platelet Volume 6.8; Monocytes # (A) 0.7 k/uL (0-1.0); Monocytes % (A) 8 %; Neutrophils # (A) 5.2 k/uL (1.3-7.7); Neutrophils % (A) 61 %; Platelet Count 200 k/uL (150-450); RBC 3.51 m/uL (3.80-5.40); RDW 14.7 % (11.5-15.5); WBC 8.5 k/uL (3.8-10.6)
[2019-08-09] MEDS: ASPIRIN 325 MG TAB PO SCH (07:35)
[2019-08-09] MEDS: MELOXICAM 7.5 MG TAB PO SCH (07:35)
[2019-08-09] MEDS: FAMOTIDINE 20 MG TAB PO SCH (07:35)
[2019-08-09] MEDS: METOPROLOL TARTRATE 25 MG TAB PO SCH (07:35)
[2019-08-09] MEDS: HYDROcodone/APAP 5-325MG 1 EACH TAB PO PRN (07:37)
[2019-08-09 07:40] LABS: ALT 17 U/L (9-52); AST 21 U/L (14-36); African American GFR (CKD) >90 (>60 ml/min/1.73 sqM); Albumin 3.3 g/dL (3.5-5.0); Alkaline Phosphatase 80 U/L (38-126); Anion Gap 9 mmol/L; Blood Urea Nitrogen 20 mg/dL (7-17); Calcium 8.9 mg/dL (8.4-10.2); Carbon Dioxide 24 mmol/L (22-30); Chloride 103 mmol/L (98-107); Glucose 126 mg/dL (74-99); Potassium 4.2 mmol/L (3.5-5.1); Sodium 136 mmol/L (137-145); Total Bilirubin 0.7 mg/dL (0.2-1.3)
--- NOTE | 2019-08-09 08:06 | P.DS ---
Providers Date of admission: 08/07/19 17:55 Expected date of discharge: 08/09/19 Attending physician: Denton Red Consults: 08/07/19 17:55 Consult Physician Routine Consulting Provider: Lit Steele Consult Reason/Comments: medical management Do you want consulting provider notified?: Yes Primary care physician: Lit Steele - Discharge Diagnosis(es) (1) Varus deformity, not elsewhere classified, right knee Current Visit: Yes Status: Acute (2) Osteoarthritis of right knee Current Visit: Yes Status: Acute (3) Status post total right knee replacement Current Visit: Yes Status: Acute Hospital Course: This is a 83-year-old female who was last seen with complaint of continued right knee pain. The patient has a known history of degenerative arthritis of the right knee and presents to discuss surgical options. After discussion and consideration the patient elects to proceed with total right knee arthroplasty. The patient is seen preoperatively by her primary care physician and cleared for surgery. The patient is admitted to [facility] for total right knee arthroplasty. The procedures performed without complication or sequelae. mEilie crenshaw is doing well postoperatively. Vital signs are stable at discharge. Labs are stable at discharge. the patient is ambulating well with walker with minimal assistance. The patient is discharged to home on postop day #2 pending medical clearance. Please see orders and refer to the [facility] rec for accurate list of medications. Patient Condition at Discharge: Good Plan - Discharge Summary Discharge Rx Participant: No New Discharge Prescriptions: New Aspirin 325 mg PO BID #60 tab HYDROcodone/APAP 5-325MG [[place] 5-325] 1 - 2 each PO Q4-6H PRN #50 tab PRN Reason: Pain Sennosides-Docusate Sodium [Senokot-S] 1 tab PO BID #60 tablet No Action Multivit-Min/FA/Lycopene/Lut [Centrum Silver Tablet] 1 tab PO DAILY@1700 Vitamin E (Dl,Tocopheryl Acet) [Vitamin E] 400 unit PO DAILY@1700 Metoprolol Tartrate 25 mg PO BID@0800,1700 Ferrous Sulfate [Feosol] 325 mg PO DAILY Pravastatin Sodium [Pravachol] 20 mg PO HS@2100 Sertraline [Zoloft] 25 mg PO DAILY@0800 Swati-Lydia Cold 2 tab PO HS Acetaminophen [Tylenol Arthritis] 1,300 mg PO DAILY PRN PRN Reason: Pain Acetaminophen [Tylenol Extra Strength] 1,000 mg PO HS PRN PRN Reason: Pain Aspirin [Adult Low Dose Aspirin EC] 40.5 mg PO DAILY B Complex-Vit C-Vit E-Zinc [Z-Bec] 1 tab PO Q48H Dm/PE/Acetaminophen/Doxylamine [Swati-[place] Plus Day-Night Cp] 2 each PO HS Ranitidine HCl 150 mg PO BID@0800,1700 Turmeric Root Extract [Turmeric] 2,000 mg PO DAILY Discharge Medication List Metoprolol Tartrate 25 mg PO BID@0800,1700 02/15/15 [History] Multivit-Min/FA/Lycopene/Lut [Centrum Silver Tablet] 1 tab PO DAILY@1700 02/15/15 [History] Vitamin E (Dl,Tocopheryl Acet) [Vitamin E] 400 unit PO DAILY@1700 02/15/15 [History] Ferrous Sulfate [Feosol] 325 mg PO DAILY 03/14/19 [History] Pravastatin Sodium [Pravachol] 20 mg PO HS@2100 03/14/19 [History] Sertraline [Zoloft] 25 mg PO DAILY@0800 03/14/19 [History] Acetaminophen [Tylenol Arthritis] 1,300 mg PO DAILY PRN 08/01/19 [History] Acetaminophen [Tylenol Extra Strength] 1,000 mg PO HS PRN 08/01/19 [History] Swati-Lydia Cold 2 tab PO HS 08/01/19 [History] Aspirin [Adult Low Dose Aspirin EC] 40.5 mg PO DAILY 08/01/19 [History] B Complex-Vit C-Vit E-Zinc [Z-Bec] 1 tab PO Q48H 08/01/19 [History] Dm/PE/Acetaminophen/Doxylamine [Swati-[place] Plus Day-Night Cp] 2 each PO HS 08/01/19 [History] Ranitidine HCl 150 mg PO BID@0800,1700 08/01/19 [History] Turmeric Root Extract [Turmeric] 2,000 mg PO DAILY 08/01/19 [History] Aspirin 325 mg PO BID #60 tab 08/08/19 [Rx] HYDROcodone/APAP 5-325MG [[place] 5-325] 1 - 2 each PO Q4-6H PRN #50 tab 08/08/19 [Rx] Sennosides-Docusate Sodium [Senokot-S] 1 tab PO BID #60 tablet 08/08/19 [Rx] Follow up Appointment(s)/Referral(s): Gricel Shah PAC [PHYSICIAN [employer]UTDOWN [employer]NER] - 08/23/19 2:30 pm [facility], [NON-STAFF] - Activity/Diet/Wound Care/Special Instructions: May bear weight as tolerated with walker. May shower if no drainage from incision at 48 hours postop. Discharge Disposition: HOME WITH HOME HEALTH SERVICES
[2019-08-09 08:49] VITALS: BP 117/57; PULSE 71; TEMP 99.1
[2019-08-09] MEDS ORDERED: FERROUS SULFATE 325 MG TAB PO SCH (09:00)
--- NOTE | 2019-08-09 11:01 | P.PN ---
Subjective Progress Note Date: 08/09/19 This is an 83-year-old female patient of Dr. Baxter. She presented 08/07/2019 for an elective right knee cemented total replacement arthroplasty with Dr. Red. She has an On-Q pump in place. She denies any pain at this time, pain regimen managed by Ortho. Patient is alert and sitting up in chair, family at bedside. Patient denies shortness of breath, chest pain, N/V. Patient has not yet had a bowel movement, but is on stools softeners and passing flatus. Patient has a history of osteoarthritis and had an acute sacral displaced fracture in February 2019, completed physical therapy and was seen Dr. Bhakta. Patient has a history of contusion of the left hip status post fall. Patient has History of essential hypertension on metoprolol, GERD , breast cancer status post right mastectomy 2011, iron deficiency anemia hemoglobin stable at 11.4 will resume ferrous sulfate, hyperlipidemia on home dose statin. On 08/09/2019 patient is alert and oriented 3. Patient has been in physical therapy. Plans for discharge home today. Patient did have low-grade temp of 99.3. Will order UA prior to discharge. At this time patient denies chest pain or shortness breath. Patient denies nausea vomiting or diarrhea. Patient denies any urinary symptoms Objective - Vital Signs Vital signs: Vital Signs Temp 99.1 F 08/09/19 07:00 Pulse 71 08/09/19 07:00 Resp 16 08/09/19 07:00 BP 117/57 08/09/19 07:00 Pulse Ox 92 L 08/09/19 07:00 Intake & Output 08/08/19 08/09/19 08/09/19 18:59 06:59 18:59 Intake Total 50 Balance 50 Intake: Intake, IV Titration 50 Amount ceFAZolin 2 gm In Sodium 50 Chloride 0.9% 50 ml @ 100 mls/hr IVPB Q8H [facility] Rx#: [id number] Other: Voiding Method Toilet Toilet Toilet # Voids 2 1 - Exam Head normocephalic Neck supple Lungs clear to auscultation bilaterally no wheezing or crackles Heart regular rate and rhythm S1-S2, no rub or gallop Abdomen is soft nontender nondistended positive bowel sounds no hepatosplenomegaly Extremities no edema. Right knee elevated with ice packs, dressing clean dry and intact Neuro alert and orientated to 3 - Labs CBC & Chem 7: 08/09/19 06:45 08/09/19 06:45 Labs: Abnormal Lab Results - Last 24 Hours (Table) 08/08/19 08/09/19 08/09/19 Range/Units 07:19 06:45 06:45 RBC 3.51 L (3.80-5.40) m/uL Hgb 11.1 L (11.4-16.0) gm/dL Hct 33.6 L (34.0-46.0) % Sodium 136 L (137-145) mmol/L BUN 20 H (7-17) mg/dL Glucose 139 H 126 H (74-99) mg/dL Total Protein 6.0 L 6.0 L (6.3-8.2) g/dL Albumin 3.4 L 3.3 L (3.5-5.0) g/dL Assessment and Plan Assessment: 1. Elective right knee total replacement arthroplasty on 08/07/[address] Red. On-Q pump in place, PRN pain regimen managed by Ortho. Progressive mobility per Ortho. Aspirin BID for anticoagulation therapy. 2. History of sacral fracture in February 2019. Rehab completed for sacral fracture in March 2019. patient followed-up with Dr. bhakta no further treatment at this time. Pain resolved 3. History of essential hypertension, on metoprolol twice a day. 4. History of GERD, on ranitidine. 5. History of hyperlipidemia, on a statin. 6. History of iron deficiency anemia, hemoglobin stable at 11.4, will resume ferrous sulfate 7. History of right breast cancer status post mastectomy 2011 8. History of gastric outlet obstruction and pyloric stenosis with exploratory lap and gastrojejunostomy in September 2016. 9. History of fall with contusion of left hip. 10. Low-grade temp. Temp 99.3 urinary analysis ordered Thank you for this consult will continue to monitor patient closely throughout stay I performed an examination of the patient and discussed their management with the Nurse Practitioner. I have reviewed the Nurse Practitioner's notes and agree with the documented findings and plan of care
[2019-08-09 13:12] LABS: Appearance,Urine Clear (Clear); Bilirubin,Urine Negative (Negative); Blood,Urine Negative (Negative); Color,Urine Yellow; Glucose,Urine (UA) Negative (Negative); Ketones,Urine Negative (Negative); Leukocyte Esterase,Urine Negative (Negative); Nitrite,Urine Negative (Negative); Protein,Urine Negative (Negative); Specific Gravity,Urine 1.016 (1.001-1.035); Urobilinogen,Urine <2.0 mg/dL (<2.0)
== END 2019-08-09 13:45 | disposition home health service (06) | DRG 470 ==
LOC: OR 13:30 → 4SSUR 17:48 → OR 17:55 → 4SSUR 17:55
PROVIDERS: ADMIT Internal Medicine; ATTEND Orthopaedic Surgery
PROC: 0SRC069 Replacement of Right Knee Joint with Oxidized Zirconium on Polyethylene Synthetic Substitute, Cemented, Open Approach (ICD-10-PCS; principal; 2019-08-07 15:15)
DX: M17.11 Unilateral primary osteoarthritis, right knee (principal); M21.161 Varus deformity, not elsewhere classified, right knee; E11.40 Type 2 diabetes mellitus with diabetic neuropathy, unspecified; E78.5 Hyperlipidemia, unspecified; I10 Essential (primary) hypertension; Z96.651 Presence of right artificial knee joint; F41.9 Anxiety disorder, unspecified; D50.9 Iron deficiency anemia, unspecified; K21.9 Gastro-esophageal reflux disease without esophagitis; Z79.82 Long term (current) use of aspirin; Z79.899 Other long term (current) drug therapy; Z82.49 Family history of ischemic heart disease and other diseases of the circulatory system; Z85.3 Personal history of malignant neoplasm of breast; Z90.11 Acquired absence of right breast and nipple; Z80.9 Family history of malignant neoplasm, unspecified; Z88.8 Allergy status to other drugs, medicaments and biological substances; Z98.890 Other specified postprocedural states; Z87.81 Personal history of (healed) traumatic fracture
CPT/HCPCS: 64448; 76942; 80053; 81003; 85025; 88300

== ENCOUNTER → 2019-11-28 | Outpatient (CLI) | payer MEDICARE, BC ==
[2019-11-28 15:15] LABS: HCT 37.4 % (34.0-46.0); HGB 11.8 gm/dL (11.4-16.0); MCH 31.4 pg (25.0-35.0); MCHC 31.4 g/dL (31.0-37.0); Mean Platelet Volume 7.3; Platelet Count 226 k/uL (150-450); RBC 3.74 m/uL (3.80-5.40); RDW 13.6 % (11.5-15.5); WBC 7.4 k/uL (3.8-10.6)
[2019-11-28 15:20] LABS: Appearance,Urine Clear (Clear); Bilirubin,Urine Negative (Negative); Blood,Urine Negative (Negative); Color,Urine Yellow; Glucose,Urine (UA) Negative (Negative); Ketones,Urine Negative (Negative); Leukocyte Esterase,Urine Trace (Negative); Nitrite,Urine Negative (Negative); Protein,Urine Negative (Negative); RBC,Urine 2 /hpf (0-5); Specific Gravity,Urine 1.029 (1.001-1.035); Squamous Epithelial Cell,Urine <1 /hpf (0-4); Urobilinogen,Urine <2.0 mg/dL (<2.0); WBC,Urine 3 /hpf (0-5)
[2019-11-28 15:24] LABS: Albumin 4.3 g/dL (3.5-5.0); Calcium 9.7 mg/dL (8.4-10.2); Partial Thromboplastin Time 24.8 sec (22.0-30.0); Potassium 4.8 mmol/L (3.5-5.1); Prothrombin Time 10.7 sec (9.0-12.0); Total Bilirubin 0.4 mg/dL (0.2-1.3); Total Protein 7.1 g/dL (6.3-8.2)
== END | disposition home or self-care (01) ==
LOC: LABPAT 14:22
PROVIDERS: ATTEND Orthopaedic Surgery Sports Medicine
DX: Z01.812 Encounter for preprocedural laboratory examination (principal)
CPT/HCPCS: 80053; 81001; 85027; 85610; 85730; 87070

== ENCOUNTER 2019-12-11 10:57 | Day surgery (SDC) | payer MEDICARE, BC ==
[2019-12-01 15:51] VITALS: BMI 23.2
[~2019-12-11 10:57] MED LIST changes: +HYDROmorphone 0.5 MG/0.5 ML SYRINGE IVP PRN; -LIDOCAINE 1% 20 ML VIAL (10MG/ML) FOR IV START INTRADERMA PRN; +MELOXICAM 7.5 MG TAB PO ONE; -fentaNYL (PF) 50 MCG/ML 2 ML AMP IV PRN
[2019-12-11] MEDS: LACTATED RINGERS 1,000 ML IV SCH ×2 (11:31→18:32)
[2019-12-11] MEDS ORDERED: DEXAMETHASONE SOD PHOSPHATE 10 MG/ML 1 ML VIAL IV ONE (11:31)
[2019-12-11] MEDS ORDERED: TRANEXAMIC ACID 1,000 MG/10 ML VIAL ONE (12:20)
[2019-12-11] MEDS ORDERED: MIDAZOLAM 2 MG/2 ML VIAL ONE (12:20)
[2019-12-11] MEDS ORDERED: SODIUM CHLORIDE 0.9% 100 ML BAG ONE (12:20)
[2019-12-11] MEDS ORDERED: ROPIVACAINE 0.2%-NS ON-Q PUMP 1,090 MG, EMPTY PAIN BALL 1 EACH MISCELLANE PRN (12:40)
--- NOTE | 2019-12-11 12:42 | P.ANPRN ---
Procedure Note - Anesthesia - Nerve Block Performed Left Adductor Canal Infusion Time Out Performed: Yes Date of Procedure: 12/11/19 Procedure Start Time: 11:57 Procedure Stop Time: 12:07 Location of Patient: PreOp Indication: Acute Post-Operative Pain, Requested by Surgeon Sedation Type: Sedate with meaningful contact maintained Preparation: Sterile Prep, Sterile Dressing Position: Supine Catheter: Indwelling Needle Types: Pajunk Needle Gauge: 18 Ultrasound used to visualize needle placement: Yes Ultrasound used to observe medication spread: Yes Injectate: 0.5% Ropivacaine (see comment for volume) (20 ml) Blood Aspirated: No Pain Paresthesia on Injection Noted: No Resistance on Injection: Normal Image Stored and Saved: Yes Events: Uneventful and Well Tolerated
[2019-12-11] MEDS ORDERED: NALOXONE 0.4 MG/ML 1 ML VIAL IV PRN (13:05)
[2019-12-11] MEDS ORDERED: BISACODYL 10 MG SUPP RECTAL PRN (13:05)
[2019-12-11] MEDS ORDERED: NA PHOS,M-B/NA PHOS,DI-BA 133 ML ENEMA RECTAL PRN (13:05)
[2019-12-11] MEDS ORDERED: ONDANSETRON 4 MG/2 ML VIAL IVP PRN (13:05)
[2019-12-11] MEDS ORDERED: HYDROcodone/APAP 5-325MG 1 EACH TAB PO PRN (13:05)
[2019-12-11] MEDS ORDERED: MAGNESIUM HYDROXIDE 2,400 MG/10 ML CUP PO PRN (13:05)
[2019-12-11] MEDS ORDERED: HYDROmorphone 0.5 MG/0.5 ML SYRINGE IVP PRN ×3 (13:05)
--- NOTE | 2019-12-11 14:12 | P.OP ---
Date of Procedure: 12/11/19 Procedure(s) Performed: PREOPERATIVE DIAGNOSIS: Left knee severe osteoarthritis with genu varum POSTOPERATIVE DIAGNOSIS: Left knee severe osteoarthritis with genu varum OPERATION: Left knee cemented total replacement arthroplasty. ANESTHESIA: Spinal ESTIMATED BLOOD LOSS: 100 ml. SUPERVISOR ACOUSTICAL TILE CARPENTERS: Tia Sood NP (assistance with: patient positioning, retraction, exposure, hemostasis, leg positioning, implantation, irrigation, closure, dressing) COMPLICATIONS: None apparent. COMPONENTS IMPLANTED: Journey II total knee system from [employer] INDICATIONS: Mrs. Weber is an 84-year-old female with a history of left knee osteoarthritis. The patient's knee is end-stage, and conservative management has failed. She has already successfully undergone reconstruction of her right knee in July 2019. The operation of knee replacement has been discussed at length in the office, as well as potential risks and complications. These are inclusive of, but not limited to: bleeding, infection, scarring, discomfort, blood vessel and nerve damage, need for further surgery, failure to relieve symptoms, persistence, recurrence, or worsening of problems, loosening, dislocation, wear, blood clot, pulmonary embolism, , gait dysfunction, stiffness, and other risks as discussed in the office. The patient elects to proceed and the consent form has been signed. PROCEDURE: The patient was taken to the operating room and positioned on the operating room table in the supine position. Anesthesia was initiated. Care was taken to make sure that all pressure points were adequately padded. The operative lower extremity was prepped and draped in the usual aseptic fashion using ChloraPrep. Ioban drape was used for the case and the patient received intravenous antibiotics within one hour of the incision. A pneumotourniquet and leg mendoza were used for the case. The limb was exsanguinated with an Esmarch bandage and the tourniquet was inflated to 350 mmHg. Time-out was called confirming the patient's identity, side, procedure and administration of antibiotics and tranexamic acid. The incision was then created midline directly over the left knee, carried down through skin and into the subcutaneous tissues and down to fascia. Full thickness subcutaneous medial flap was developed. Medial parapatellar arthrotomy was performed and the interior of the knee was inspected. There was end-stage osteoarthritis of the knee with a mild to moderate genu varum type def ormity. The fat pad was excised and proximal medial release on the tibia was completed using meticulous dissection and a curved osteotome. The anterior cruciate ligament was taken down. Note was made of significant attrition of the anterior and significant degenerative appearance of the cruciate ligaments. The exposure was excellent. The knee was flexed 90 degrees and the patella was everted. The [employer] pre- made distal cutting block was attached and pinned into position. The planned cut was analyzed visually and with the alignment loly and found to be satisfactory without the need for any adjustment. The oscillating saw was then used to make the distal femoral cut and make the alignment holes for the 5 in 1 block. This cut was confirmed to be flat with the flat end of an osteotome. The 5 in 1 block was then used to create the anterior posterior condylar resections and the chamfer cuts. The retractors were placed around the tibia and the tibial surface was addressed. The [employer] pre-made guide was placed onto the exposed tibial surface and pinned into position to shayy the rotational alignment. The alignment of the guide was checked for depth of plannned resection, slope, and varus valgus. Guide was confirmed to be in good position and the tibial cut was then created with protection of the posterior neurovascular structures and the collateral ligaments. The tibial cut surface was removed and sized. Spacer block technique was then used to confirm that the flexion and extension gaps were equal. Soft tissue releases and adjustment of the tibial and/or femoral cuts were made, as necessary, until the gaps were equal. This included release of the posterior cruciate ligament, which was excessively tight in this patient. Prior to placing trial components, anesthetic solution consisting of ropivicaine with epinephrine, ketorolac, and clonidine was injected carefully and methodically in a grid pattern using aspiration technique into the soft tissue around the knee circumferentially, starting with the deeper tissues first and progressing to fascia, and then finally the skin/subcutaneous tissue. Particular care was taken when injecting the posterior capsule, with avoidance of the midline posterior area. The trial components were inserted. The tibial tray was allowed to self center and the patella was noted to track very well. The position of the tibial component was marked and noted to be nearly exactly aligned with the pre-drilled holes from the [employer] guide. The tibia was then finished for a stemmed tibial component. Patellar resurfacing was performed using a reamer. The size of the required patellar component was estimated and the patellar surface was then reamed down to a residual thickness which would recreate the huslia thickness with the component. The exact placement of the patellar component was adjusted for position based on preoperative x-rays and intraoperative findings. Trial components were removed and the cut surfaces of the bone were pulse lavaged thoroughly and dried. Cement was mixed on the back table and applied to the final components. Cement was then applied to the tibial surface and pressurized into the surface using finger pressurization technique. The tibial component was then applied and excess cement was removed after it was impacted securely and noted to be flush with the cut surface. In similar fashion, the cement was applied to the cut femoral surface, pressurized in using finger pressurization and the component was impacted into place. Excess cement was removed. The polyethylene spacer was then implanted and locked into position. The patellar component was then applied in similar technique and a patellar clamp was used to hold the patella in place as the cement hardened. Once the cement had fully hardened, the knee was reinspected. Any other cement extrusion was removed and final kinematic testing showed range of motion from 0 to 130 degrees with excellent stability, both medially and laterally and appropriate alignment of the leg. Patellar tracking was excellent. The knee was then thoroughly pulse lavaged with normal saline. The tourniquet was deflated and hemostasis was obtained with electrocautery and IV tranexamic acid, 1 g given at the start of the operation and 1 g at the start of closure. Closure was with #2 Ethibond in the fascia/capsule and supplemented with #2 Quill, 2-0 Vicryl suture was used for the subcutaneous tissues and 3-0 Quill for the skin. Dermabond/Steri-Strips were then applied. A lightly compressive dressing was applied using Webril and an Gurvinder wrap. The patient was then transferred to the [facility] and taken to the recovery room in stable condition. Sponge and needle counts were correct.
--- NOTE | 2019-12-11 15:08 | XR ---
EXAMINATION TYPE: XR knee limited LT DATE OF EXAM: 12/11/2019 CLINICAL HISTORY: Left knee pain and arthritis status post total knee replacement. TECHNIQUE: Portable AP and crosstable lateral views of the left knee are obtained immediately postop eratively. COMPARISON: None FINDINGS: Metallic hardware from total left knee arthroplasty is seen and appears satisfactory in al ignment and position. There is evidence of recent surgery with diffuse subcutaneous gas and soft tis dominick swelling noted. IMPRESSION: METALLIC HARDWARE FROM TOTAL LEFT KNEE ARTHROPLASTY IS SATISFACTORY IN ALIGNMENT.
[2019-12-11] MEDS ORDERED: LACTATED RINGERS 1,000 ML IV ONE (18:09)
[2019-12-11 18:34] VITALS: RESP 12
[2019-12-11] MEDS ORDERED: SENNOSIDES-DOCUSATE SODIUM 1 EACH TAB PO SCH (21:00)
[2019-12-11] MEDS: ASPIRIN 325 MG TAB PO SCH (21:34)
[2019-12-12] MEDS: LACTATED RINGERS 1,000 ML IV SCH ×3 (01:29→10:28)
--- NOTE | 2019-12-12 07:47 | P.PN ---
Progress Note - Text Progress Note Date: 12/12/19 Pt without complaints. Pain 11/24. OOB. Left adductor canal catheter site clean and dry. A/P POD#1 s/p L TKA with L adductor block - doing well - continue multimodal analgesia
[2019-12-12 08:02] LABS: Basophils % (A) 0 %; Eosinophils % (A) 0 %; HCT 31.5 % (34.0-46.0); HGB 10.1 gm/dL (11.4-16.0); Lymphocytes # (A) 1.3 k/uL (1.0-4.8); Lymphocytes % (A) 13 %; MCH 31.7 pg (25.0-35.0); MCV 99.2 fL (80.0-100.0); Mean Platelet Volume 7.8; Monocytes # (A) 0.8 k/uL (0-1.0); Monocytes % (A) 8 %; Neutrophils % (A) 77 %; Platelet Count 171 k/uL (150-450); RBC 3.18 m/uL (3.80-5.40); RDW 13.5 % (11.5-15.5); WBC 10.4 k/uL (3.8-10.6)
[2019-12-12 08:10] VITALS: TEMP 98.1
[2019-12-12] MEDS: ASPIRIN 325 MG TAB PO SCH (08:45)
[2019-12-12] MEDS ORDERED: METOPROLOL TARTRATE 25 MG TAB PO SCH (09:00)
[2019-12-12] MEDS ORDERED: SERTRALINE 25 MG TAB PO SCH (09:00)
[2019-12-12 10:56] VITALS: BP 129/64; PULSE 60
--- NOTE | 2019-12-12 11:10 | P.DS ---
Providers Expected date of discharge: 12/12/19 Attending physician: Denton Red Consults: 12/11/19 13:05 Consult Physician Routine Consulting Provider: Art Rice Consult Reason/Comments: Medical management Do you want consulting provider notified?: Yes Primary care physician: Ami Baxter - Discharge Diagnosis(es) (1) Primary localized osteoarthritis of left knee Current Visit: Yes Status: Acute (2) Status post total left knee replacement Current Visit: Yes Status: Acute Hospital Course: This is an 84-year-old female who was last seen with complaint of continued left knee pain. The patient has a known history of degenerative arthritis of the left knee and presents to discuss surgical options. After discussion and consideration the patient elects to proceed with total left knee arthroplasty. The patient is seen preoperatively by her primary care physician and cleared for surgery. The patient is admitted to [facility] for total left knee arthroplasty. The procedures performed without complication or sequelae. He is doing well postoperatively. Vital signs are stable at discharge. Labs are stable at discharge. the patient is ambulating well with walker with minimal assistance. The patient is discharged to home on postop day #1 pending medical clearance. Please see orders and refer to the med rec for accurate list of medications. Plan - Discharge Summary Discharge Rx Participant: No New Discharge Prescriptions: New Aspirin 325 mg PO BID #1 tab HYDROcodone/APAP 5-325MG [[place] 5-325] 1 - 2 each PO Q4-6H PRN #50 tab PRN Reason: Pain Sennosides-Docusate Sodium [Senokot-S] 1 tab PO BID #60 tablet No Action Multivit-Min/FA/Lycopene/Lut [Centrum Silver Tablet] 1 tab PO DAILY Vitamin E (Dl,Tocopheryl Acet) [Vitamin E] 400 unit PO DAILY Metoprolol Tartrate 25 mg PO DAILY Ferrous Sulfate [Iron (65 MG Elemental)] 325 mg PO DAILY Sertraline [Zoloft] 25 mg PO DAILY Turmeric Root Extract [Turmeric] 538 mg PO DAILY Pravastatin Sodium [Pravachol] 20 mg PO HS Aspirin [Adult Low Dose Aspirin EC] 40.5 mg PO DAILY Famotidine [Pepcid] 20 mg PO DAILY Cyanocobalamin [Vitamin B-12] 500 mcg PO DAILY Cholecalciferol [Vitamin D3 (25 Mcg = 1000 Iu)] 1,000 unit PO DAILY Acetaminophen [Tylenol Extra Strength] 1,000 mg PO HS PRN PRN Reason: Pain Acetaminophen [Tylenol Arthritis] 1,300 mg PO QAM PRN PRN Reason: Pain Discharge Medication List Metoprolol Tartrate 25 mg PO DAILY 02/15/15 [History] Multivit-Min/FA/Lycopene/Lut [Centrum Silver Tablet] 1 tab PO DAILY 02/15/15 [History] Vitamin E (Dl,Tocopheryl Acet) [Vitamin E] 400 unit PO DAILY 02/15/15 [History] Ferrous Sulfate [Iron (65 MG Elemental)] 325 mg PO DAILY 03/14/19 [History] Sertraline [Zoloft] 25 mg PO DAILY 03/14/19 [History] Turmeric Root Extract [Turmeric] 538 mg PO DAILY 08/01/19 [History] Acetaminophen [Tylenol Arthritis] 1,300 mg PO QAM PRN 12/01/19 [History] Acetaminophen [Tylenol Extra Strength] 1,000 mg PO HS PRN 12/01/19 [History] Aspirin [Adult Low Dose Aspirin EC] 40.5 mg PO DAILY 12/01/19 [History] Cholecalciferol [Vitamin D3 (25 Mcg = 1000 Iu)] 1,000 unit PO DAILY 12/01/19 [History] Cyanocobalamin [Vitamin B-12] 500 mcg PO DAILY 12/01/19 [History] Famotidine [Pepcid] 20 mg PO DAILY 12/01/19 [History] Pravastatin Sodium [Pravachol] 20 mg PO HS 12/01/19 [History] Aspirin 325 mg PO BID #1 tab 12/12/19 [Rx] HYDROcodone/APAP 5-325MG [[place] 5-325] 1 - 2 each PO Q4-6H PRN #50 tab 12/12/19 [Rx] Sennosides-Docusate Sodium [Senokot-S] 1 tab PO BID #60 tablet 12/12/19 [Rx] Follow up Appointment(s)/Referral(s): Gricel Shah PAC [PHYSICIAN JUNIOR ART DIRECTOR] - 12/28/19 2:45 pm [facility], [NON-STAFF] - As Needed Activity/Diet/Wound Care/Special Instructions: Weightbearing as tolerated with walker. May shower if no drainage from incision at 48 hours. Discharge Disposition: HOME WITH HOME HEALTH SERVICES
[2019-12-12] MEDS ORDERED: PRAVASTATIN SODIUM 40 MG TAB PO SCH (21:00)
== END 2019-12-12 13:27 | disposition home health service (06) ==
LOC: OR 10:57 → 4SSUR 17:57 → OR 12-12 13:27
PROVIDERS: ATTEND Orthopaedic Surgery
DX: M17.12 Unilateral primary osteoarthritis, left knee (principal); M21.162 Varus deformity, not elsewhere classified, left knee; I48.92 Unspecified atrial flutter; I10 Essential (primary) hypertension; E11.51 Type 2 diabetes mellitus with diabetic peripheral angiopathy without gangrene; E78.2 Mixed hyperlipidemia; F41.9 Anxiety disorder, unspecified; F32.9 Major depressive disorder, single episode, unspecified; K21.9 Gastro-esophageal reflux disease without esophagitis; Z79.82 Long term (current) use of aspirin; Z79.899 Other long term (current) drug therapy; Z88.8 Allergy status to other drugs, medicaments and biological substances; Z96.651 Presence of right artificial knee joint; Z85.3 Personal history of malignant neoplasm of breast; Z90.10 Acquired absence of unspecified breast and nipple; Z86.79 Personal history of other diseases of the circulatory system; Z97.3 Presence of spectacles and contact lenses; Z87.11 Personal history of peptic ulcer disease; Z83.3 Family history of diabetes mellitus
CPT/HCPCS: 97161; 64448; 76942; 88305; 85025; 88311; 73560; 27447; C1713; C1776; J2250; J0171; J1100; J0690 ×2; J2405; J1885; J2795 ×2; J0735